=== PATIENT | male | born 1930 | race Two or more races ===

== ENCOUNTER → 2017-04-11 | Outpatient (CLI) | payer OTHER ==
[~2017-04-11] MED LIST: CLONAZEPAM0.5 MG; CLONAZEPAM0.5 MG PO; OMEPRAZOLE20 MG; PRILOSEC OTC20 MG; TIZANIDINE HCL2 MG PO; XANAX0.25 MG PO; [UNRECOGNIZED DRUG - OTHER]
== END | disposition home or self-care (01) ==
LOC: TOM 09:27
DX: R10.9 Unspecified abdominal pain (principal)

== ENCOUNTER 2017-04-28 09:47 | Outpatient (CLI) | payer OTHER | END 2017-04-28 15:43 | disposition home or self-care (01) | LOC: SONOGRAMA 09:47 | DX: R10.11 Right upper quadrant pain (principal) ==

== ENCOUNTER 2017-04-28 09:55 | Outpatient (CLI) | payer OTHER | END 2017-04-28 15:44 | disposition home or self-care (01) | LOC: RX STUDY 09:55 | DX: R10.84 Generalized abdominal pain (principal) ==

== ENCOUNTER 2017-07-22 12:56 | Emergency (ER) | payer OTHER ==
[~2017-07-22] VITALS: Ht 172.7 cm; Wt 58.5 kg
== END 2017-07-22 13:56 | disposition home or self-care (01) ==
LOC: ER 12:56
DX: S00.31XA Abrasion of nose, initial encounter (principal); S00.81XA Abrasion of other part of head, initial encounter; W01.118A Fall on same level from slipping, tripping and stumbling with subsequent striking against other sharp object, initial encounter; Y93.01 Activity, walking, marching and hiking; Y92.488 Other paved roadways as the place of occurrence of the external cause; Y99.8 Other external cause status

== ENCOUNTER 2018-02-23 07:49 | Emergency (ER) | payer OTHER ==
[~2018-02-23] VITALS: Ht 172.7 cm; Wt 60.8 kg
== END 2018-02-23 11:14 | disposition home or self-care (01) ==
LOC: ER 07:49
DX: N30.80 Other cystitis without hematuria (principal); B96.89 Other specified bacterial agents as the cause of diseases classified elsewhere

== ENCOUNTER → 2018-05-19 | Outpatient (CLI) | payer OTHER | END | disposition home or self-care (01) | LOC: TOM 08:29 | DX: R10.9 Unspecified abdominal pain (principal) ==

== ENCOUNTER 2018-08-20 01:37 | Emergency (ER) | payer OTHER ==
[~2018-08-20] VITALS: Ht 172.7 cm; Wt 63.5 kg
[2018-08-26] MEDS ORDERED: TIZANIDINE HCL2 MG PO (12:16)
[2018-08-26] MEDS ORDERED: MOBIC7.5 M1 PO (12:16)
== END 2018-08-20 03:43 | disposition home or self-care (01) ==
LOC: ER 01:37
DX: T65.891A Toxic effect of other specified substances, accidental (unintentional), initial encounter (principal); R07.0 Pain in throat

== ENCOUNTER 2018-09-24 09:44 | Outpatient (CLI) | payer OTHER ==
[~2018-09-24 09:44] MED LIST changes: +MOBIC7.5 M1 PO
== END 2018-09-24 09:55 | disposition home or self-care (01) ==
LOC: NUCLEAR 09:44
DX: I20.1 Angina pectoris with documented spasm (principal)
CPT/HCPCS: 78452; 93017; A9500; J0153

== ENCOUNTER 2018-12-03 08:57 | Outpatient (CLI) | payer OTHER | END 2018-12-03 09:30 | disposition home or self-care (01) | LOC: RAD 08:57 | DX: R97.20 Elevated prostate specific antigen [PSA] (principal); C61 Malignant neoplasm of prostate; N40.0 Benign prostatic hyperplasia without lower urinary tract symptoms; I11.9 Hypertensive heart disease without heart failure; E55.9 Vitamin D deficiency, unspecified; E78.00 Pure hypercholesterolemia, unspecified; M54.2 Cervicalgia ==

== ENCOUNTER 2019-01-11 07:40 | Outpatient (CLI) | payer OTHER | END 2019-01-11 15:01 | disposition home or self-care (01) | LOC: MRI 07:40 | DX: R97.20 Elevated prostate specific antigen [PSA] (principal); G50.8 Other disorders of trigeminal nerve | CPT/HCPCS: 70551 ==

== ENCOUNTER 2019-04-01 10:46 | Outpatient (CLI) | payer OTHER ==
[~2019-04-01] VITALS: Ht 172.7 cm; Wt 65.8 kg
== END 2019-04-01 12:52 | disposition home or self-care (01) ==
LOC: OFIC 805 10:46
DX: H81.13 Benign paroxysmal vertigo, bilateral (principal); R42 Dizziness and giddiness

== ENCOUNTER 2019-04-13 14:07 | Outpatient (CLI) | payer OTHER | END 2019-04-14 14:55 | disposition home or self-care (01) | LOC: OFIC 805 14:07 | DX: H81.13 Benign paroxysmal vertigo, bilateral (principal) | CPT/HCPCS: 99213; G0463 ==

== ENCOUNTER 2019-05-01 11:37 | Emergency (ER) | payer OTHER ==
[~2019-05-01] VITALS: Ht 172.7 cm; Wt 65.8 kg
[2019-05-01] MEDS ORDERED: ATORVASTATIN CA20 MG PO (11:53)
[2019-05-01] MEDS ORDERED: TAMS0.4C PO (11:54)
[2019-05-01] MEDS ORDERED: ALENDRONATE SOD70 MG PO (11:55)
[2019-05-01] MEDS ORDERED: DITROPAN XL10 MG (11:55)
[2019-05-01] MEDS ORDERED: ASPIR 8181 MG PO (11:55)
[2019-05-01] MEDS ORDERED: MOXIFLOXACIN HCL1 GM PO (11:56)
[2019-05-01] MEDS ORDERED: HYOSCYAMINE0.125 M2 (11:56)
== END 2019-05-01 13:10 | disposition home or self-care (01) ==
LOC: ER 11:37
DX: J06.9 Acute upper respiratory infection, unspecified (principal)

== ENCOUNTER 2019-05-02 09:45 | Emergency (ER) | payer OTHER ==
[~2019-05-02] VITALS: Ht 172.7 cm; Wt 65.8 kg
[~2019-05-02 09:45] MED LIST changes: +ALENDRONATE SOD70 MG PO; +ASPIR 8181 MG PO; +ATORVASTATIN CA20 MG PO; +DITROPAN XL10 MG; +HYOSCYAMINE0.125 M2; +MOXIFLOXACIN HCL1 GM PO; +TAMS0.4C PO
== END 2019-05-02 11:47 | disposition home or self-care (01) ==
LOC: ER 09:45
DX: H60.8X1 Other otitis externa, right ear (principal)

== ENCOUNTER 2019-05-04 06:03 | Emergency (ER) | payer OTHER ==
[~2019-05-04] VITALS: Ht 175.3 cm; Wt 74.8 kg
[2019-05-04] MEDS ORDERED: CLONAZEPAM0.5 MG PO (07:12)
== END 2019-05-04 07:44 | disposition home or self-care (01) ==
LOC: ER 06:03
DX: H60.8X3 Other otitis externa, bilateral (principal)

== ENCOUNTER 2019-08-17 08:02 | Emergency (ER) | payer OTHER ==
[~2019-08-17] VITALS: Ht 172.7 cm; Wt 65.8 kg
[2019-08-17] MEDS ORDERED: PEPCID AC20 MG PO (08:29)
== END 2019-08-17 10:56 | disposition home or self-care (01) ==
LOC: ER 08:02
DX: H60.8X2 Other otitis externa, left ear (principal)

== ENCOUNTER 2019-09-19 10:57 | Emergency (ER) | payer OTHER ==
[~2019-09-19] VITALS: Ht 172.7 cm; Wt 64.9 kg
[~2019-09-19 10:57] MED LIST changes: +PEPCID AC20 MG PO
[2019-09-19] MEDS ORDERED: OMEPRAZOLE40 MG (11:13)
== END 2019-09-19 13:33 | disposition home or self-care (01) ==
LOC: ER 10:57
DX: M62.838 Other muscle spasm (principal)

== ENCOUNTER → 2019-09-23 | Outpatient (CLI) | payer OTHER ==
[~2019-09-23] MED LIST changes: +OMEPRAZOLE40 MG
== END | disposition home or self-care (01) ==
LOC: MAMO-SONO 10:25
PROVIDERS: ATTEND Internal Medicine Pulmonary Disease
DX: R06.02 Shortness of breath (principal); R07.1 Chest pain on breathing

== ENCOUNTER 2019-09-27 09:11 | Outpatient (CLI) | payer OTHER | END 2019-09-27 09:12 | disposition home or self-care (01) | LOC: SONOGRAMA 09:11 | PROVIDERS: ATTEND Internal Medicine Gastroenterology | DX: K21.9 Gastro-esophageal reflux disease without esophagitis (principal); K30 Functional dyspepsia; R10.84 Generalized abdominal pain ==

== ENCOUNTER 2019-10-09 08:10 | Emergency (ER) | payer OTHER ==
[~2019-10-09] VITALS: Ht 172.7 cm; Wt 64.9 kg
== END 2019-10-09 10:30 | disposition home or self-care (01) ==
LOC: ER 08:10
DX: M54.5 Low back pain (principal); T38.5X5A Adverse effect of other estrogens and progestogens, initial encounter; Y92.89 Other specified places as the place of occurrence of the external cause

== ENCOUNTER → 2020-02-29 | Outpatient (CLI) | payer OTHER | END | disposition home or self-care (01) | LOC: OFIC 805 10:15 | PROVIDERS: ATTEND Otolaryngology | DX: R42 Dizziness and giddiness (principal); H61.23 Impacted cerumen, bilateral ==

== ENCOUNTER 2020-03-28 09:28 | Outpatient (CLI) | payer OTHER | END 2020-03-28 16:23 | disposition home or self-care (01) | LOC: OFIC 805 09:28 | PROVIDERS: ATTEND Otolaryngology | DX: R42 Dizziness and giddiness (principal) ==

== ENCOUNTER 2020-04-04 19:49 | Emergency (ER) | payer OTHER ==
[~2020-04-04] VITALS: Ht 172.7 cm; Wt 65.8 kg
== END 2020-04-04 21:13 | disposition home or self-care (01) ==
LOC: ER 19:49
DX: K64.4 Residual hemorrhoidal skin tags (principal)

== ENCOUNTER 2020-04-08 10:54 | Emergency (ER) | payer OTHER ==
[~2020-04-08] VITALS: Ht 172.7 cm; Wt 65.8 kg
[2020-04-08] MEDS ORDERED: FINASTERIDE5 MG PO (11:10)
[2020-04-08] MEDS ORDERED: CLONAZEPAM0.5 MG PO (11:11)
== END 2020-04-08 14:29 | disposition home or self-care (01) ==
LOC: ER 10:54
DX: K64.8 Other hemorrhoids (principal)

== ENCOUNTER 2020-05-23 14:01 | Outpatient (CLI) | payer OTHER ==
[~2020-05-23 14:01] MED LIST changes: +FINASTERIDE5 MG PO
== END 2020-05-23 14:32 | disposition home or self-care (01) ==
LOC: OFIC 805 14:01
PROVIDERS: ATTEND Otolaryngology Otology & Neurotology
DX: M54.2 Cervicalgia (principal); H61.23 Impacted cerumen, bilateral; R42 Dizziness and giddiness

== ENCOUNTER → 2020-06-30 | Outpatient (CLI) | payer OTHER | END | disposition home or self-care (01) | LOC: OFIC 805 08:40 | PROVIDERS: ATTEND Otolaryngology Otology & Neurotology | DX: J30.89 Other allergic rhinitis (principal); J34.89 Other specified disorders of nose and nasal sinuses ==

== ENCOUNTER 2020-10-12 10:31 | Outpatient (CLI) | payer OTHER | END 2020-10-12 10:40 | disposition home or self-care (01) | LOC: TOM 10:31 | PROVIDERS: ATTEND Specialist | DX: K57.90 Diverticulosis of intestine, part unspecified, without perforation or abscess without bleeding (principal); N20.0 Calculus of kidney ==

== ENCOUNTER 2020-12-09 08:54 | Outpatient (CLI) | payer OTHER | END 2020-12-09 08:59 | disposition home or self-care (01) | LOC: RAD 08:54 | PROVIDERS: ATTEND Specialist | DX: M62.830 Muscle spasm of back (principal); M51.36 Other intervertebral disc degeneration, lumbar region; M19.011 Primary osteoarthritis, right shoulder; S32.000A Wedge compression fracture of unspecified lumbar vertebra, initial encounter for closed fracture ==

== ENCOUNTER → 2021-04-09 | Emergency (ER) | payer OTHER ==
[~2021-04-09] VITALS: Ht 165.1 cm; Wt 68.0 kg
== END | disposition home or self-care (01) ==
LOC: ER 20:33
DX: K59.00 Constipation, unspecified (principal); Z88.2 Allergy status to sulfonamides; Z88.6 Allergy status to analgesic agent

== ENCOUNTER → 2021-04-10 | Emergency (ER) | payer OTHER | END | disposition left against medical advice (07) | LOC: ER 03:43 | DX: Z53.21 Procedure and treatment not carried out due to patient leaving prior to being seen by health care provider (principal) ==